=== PATIENT | female | born 1970 | race Caucasian/White ===

== ENCOUNTER 2019-05-13 18:41 | Emergency (ER) | payer SELFPAY, BC ==
[2019-05-13] MEDS: FAMOTIDINE 20 MG TAB PO (20:42)
[2019-05-13] MEDS: ONDANSETRON (ODT) 4 MG TAB ODT (20:42)
[2019-05-13 20:52] LABS: ADD UMIC YES; UR ASCORBIC ACID NEGATIVE (NEGATIVE); UR BILIRUBIN (Dip) NEGATIVE (NEGATIVE); UR BLOOD (Dip) 3+ mg/dL (NEGATIVE); UR CLARITY CLEAR (CLEAR); UR COLOR YELLOW (YELLOW); UR GLUCOSE (Dip) NEGATIVE (NEGATIVE); UR KETONES (Dip) NEGATIVE (NEGATIVE); UR LEUKOCYTE ESTERASE (Dip) NEGATIVE Leu/ul (NEGATIVE); UR NITRITE (Dip) NEGATIVE (NEGATIVE); UR RBC 8 /HPF (0-5); UR SPECIFIC GRAVITY (Dip) 1.014 (1.003-1.030); UR TOTAL PROTEIN (Dip) NEGATIVE (NEGATIVE); UR UROBILINOGEN (Dip) NEGATIVE (NEGATIVE); UR WBC 1 /HPF (0-5)
== END 2019-05-13 22:41 | disposition home or self-care (01) ==
LOC: FTE 18:41
DX: J32.9 Chronic sinusitis, unspecified (principal)
CPT/HCPCS: 70490; 81001; 81025; 99284-25